=== PATIENT | male | born 1975 | race Caucasian/White ===

== ENCOUNTER 2016-09-17 19:28 | Emergency (ER) | payer OTHER ==
[~2016-09-17] VITALS: Ht 172.7 cm; Wt 78.5 kg
[2016-09-17 19:37] VITALS: BP 122/78
--- NOTE | 2016-09-17 20:12 | RADIOLOGY REPORT ---
EXAMINATION: XR SHOULDER, RIGHT CLINICAL INFORMATION: Right shoulder pain and decreased range of motion. COMPARISON: No relevant prior studies are available for comparison. TECHNIQUE: AP external rotation, Grashey, and scapular Y views of the right shoulder. FINDINGS: No fracture or dislocation. No joint space narrowing. No marginal osteophytes. No osseous erosion. No abnormal soft tissue calcification. IMPRESSION: Unremarkable radiographic examination of the right shoulder.
--- NOTE | 2016-09-17 20:23 | ED UPPER/LOWER EXTREMITY COMPL ---
History of Present Illness General Chief Complaint: Shoulder Injury Stated Complaint: R SHOULDER PAIN Source: patient, family Exam Limitations: no limitations Vital Signs & Intake/Output Vital Signs & Intake/Output Vital Signs Date Time Temp Pulse Resp B/P B/P Pulse O2 O2 Flow FiO2 Mean Ox Delivery Rate 09/17 1936 97.2 73 18 122/78 97 Room Air Allergies Coded Allergies: MDX - Shellfish (SHELLFISH) (Intermediate, GI UPSET 11/26/12) Reconcile Medications Cyclobenzaprine HCl 10 MG TABLET 1 TAB PO Q8P PAIN OR SPASM Oxycodone HCl/Acetaminophen (Percocet 5-325 MG Tablet) 5 MG-325 MG TABLET 1-2 TAB PO Q6P PRN PAIN Triage Note: PRESENTS TO ED FOR EVALUATION OF RIGHT SHOULDER. HE WAS THROWING A FOOTBALL AND FELT A "POP" SOUND FOLLOWED BY PAIN AND NOW IS EXPERIENCING DECREASED ROM DUE TO THE PAIN. NO OBVIOUS DEFORMITY NOTED. Triage Nurses Notes Reviewed? yes HPI: Patient was throwing around a small football with his son. Patient attempted to throw his heart is good and felt the sudden pop followed by a burning sensation in his right shoulder. The pain is in the posterior aspect of his right shoulder. The pain then radiates to the back of his neck as well as down his arm to his fingers. The pain increases with movement. There is no numbness or tingling. There is no headache. The pain is 10 out of 10. Patient denies any other injury. Past History Travel History Traveled to [place] past 21 day No Medical History Any Pertinent Medical History? none Surgical History Surgical History: none Psychosocial History What is your primary language Kiswahili Tobacco Use: Quit <30 days ago ETOH Use: occasional use Illicit Drug Use: denies illicit drug use Family History Hx Contributory? No Review of Systems Review of Systems Constitutional: Reports: no symptoms. Respiratory: Reports: no symptoms. Cardiovascular: Reports: no symptoms. Gastrointestinal/Abdominal: Reports: no symptoms. Musculoskeletal: Reports: see HPI, muscle pain. Neurological/Psychological: Reports: no symptoms. Immunological: Reports: no symptoms. Physical Exam Physical Exam General Appearance: well developed/nourished, alert, awake, mild distress Head: atraumatic, normal appearance Eyes: Bilateral: PERRL, EOMI. Neck: normal inspection, supple, full range of motion, no midline tenderness Cardiovascular/Respiratory: normal breath sounds, normal peripheral pulses, regular rate/rhythm, no respiratory distress Shoulder Right: tenderness, pain, soft tissue tenderness Elbow Right: normal range of motion, normal inspection Hand Right: normal inspection, normal range of motion Neurologic/Tendon: normal sensation, normal motor functions, normal tendon functions Skin: intact, normal color Progress Differential Diagnosis: dislocation, fracture, sprain, tendon injury Plan of Care: Orders Procedure Date/time Status Durable Medical Equipment 09/17 2032 Active Current Medications Sig/Peter Start time Last Medication Dose Stop Time Status Admin Cyclobenzaprine HCl 10 MG ONCE ONE 09/17 2044 UNVr (Flexeril 10MG Tab) 09/17 2045 Oxycodone/ 1 TAB ONCE ONE 09/17 2044 AC Acetaminophen 09/17 2045 (Percocet) Diagnostic Imaging: Viewed by Me: Radiology Read. Discussed w/RAD: Radiology Read. Radiology Impression: PATIENT: JENNIE MARTINEZ PRESENT AGE: 40 PATIENT ACCOUNT NO: [id number] : 77 LOCATION: [facility] ORDERING PHYSICIAN: SHONDA PORTILLO DO (TBS) SERVICE DATE: 09/17/16 EXAM TYPE: RAD - XRY-SHOULDER COMPLETE-RIGHT EXAMINATION: XR SHOULDER, RIGHT CLINICAL INFORMATION: Right shoulder pain and decreased range of motion. COMPARISON: No relevant prior studies are available for comparison. TECHNIQUE: AP external rotation, Grashey, and scapular Y views of the right shoulder. FINDINGS: No fracture or dislocation. No joint space narrowing. No marginal osteophytes. No osseous erosion. No abnormal soft tissue calcification. IMPRESSION: Unremarkable radiographic examination of the right shoulder. DICTATED BY: JANEY SAUNDERS MD DATE/TIME DICTATED:09/17/162004 SHELF FILLER:JOSE MANUEL DATE/TIME TRANSCRIBED:09/17/162004 CONFIDENTIAL, DO NOT COPY WITHOUT APPROPRIATE AUTHORIZATION. <Electronically signed in Other Vendor System> SIGNED BY: JANEY SAUNDERS MD 09/17/162011 Departure Departure Disposition: HOME OR SELF CARE Condition: Stable Clinical Impression Primary Impression: Shoulder sprain Qualifiers: Encounter type: initial encounter Shoulder sprain type: unspecified sprain Laterality: right Qualified Code: S43.401A - Unspecified sprain of right shoulder joint, initial encounter Referrals: FITO PATEL,MAGDI Kenyon (PCP/Family) WATSON WING MD Additional Instructions: Take meds as needed. Use sling only for severe pain but try to move her shoulder as much as possible. Follow-up with orthopedics. Return for any concerns. Departure Forms: Customer Survey General Discharge Information Prescriptions: Current Visit Scripts Oxycodone HCl/Acetaminophen (Percocet 5-325 MG Tablet) 1-2 TAB PO Q6P PRN PAIN #20 TAB Cyclobenzaprine HCl 1 TAB PO Q8P #20 TAB
[2016-09-17] MEDS ORDERED: CYCLOBENZAPRINE10 M1 PO (20:35)
[2016-09-17] MEDS ORDERED: PERCOCET 5-3251 EACH PO (20:35)
== END 2016-09-17 20:47 ==
LOC: ERH 19:28
DX: S43.401A Unspecified sprain of right shoulder joint, initial encounter (principal); X58.XXXA Exposure to other specified factors, initial encounter; Y93.61 Activity, american tackle football; Y92.9 Unspecified place or not applicable
CPT/HCPCS: 73030-RT